=== PATIENT | female | born 1960 | race Caucasian/White ===

== ENCOUNTER 2016-05-23 05:35 | Day surgery (SDC) | payer OTHER ==
[~2016-05-23] VITALS: Ht 160 cm; Wt 51.8 kg
[~2016-05-23 05:35] MED LIST: FentaNYL CITRATE-PF 100 MCG/2 ML VIAL IVP ONE; KETAMINE HCL 50 MG/ML 10 ML VIAL IVP ONE; MIDAZOLAM HCL 2 MG/2 ML VIAL IVP ONE; PROPOFOL 1% 20 ML VIAL IVP ONE
[2016-05-23] MEDS ORDERED: SODIUM CHLORIDE 0.9% 1,000 ML IV ONE ×4 (05:59→15:06)
[2016-05-23] MEDS ORDERED: CeFAZolin 1 GM/DEXTROSE 0 ML IV ONE (06:03)
[2016-05-23] MEDS ORDERED: CeFAZolin 1 GM/DEXTROSE 50 ML IV ONE (06:15)
[2016-05-23] MEDS ORDERED: LORazepam 2 MG/ML VIAL IVP ONE (06:15)
[2016-05-23] MEDS ORDERED: FentaNYL CITRATE-PF 100 MCG/2 ML VIAL ONE (07:13)
[2016-05-23] MEDS ORDERED: MIDAZOLAM HCL 2 MG/2 ML VIAL ONE (07:13)
[2016-05-23] MEDS ORDERED: LIDOCAINE HCL/PF 1% 30 ML VIAL ONE ×2 (07:14→18:11)
[2016-05-23] MEDS ORDERED: 0.9% SODIUM CHLORIDE 10 ML SYRINGE IVP ONE (07:18)
[2016-05-23] MEDS ORDERED: VANCOMYCIN HCL 1 GM/VIAL ONE (07:36)
[2016-05-23] MEDS ORDERED: VANCOMYCIN HCL 1 GM/D5% WATER 200 ML IV ONE (07:45)
[2016-05-23] MEDS ORDERED: PROPOFOL 1000 MG/ISO-OSM 100 ML IV ONE (07:47)
[2016-05-23 08:29] VITALS: BP 118/84
[2016-05-23] MEDS ORDERED: IODIXANOL 320 MG/ML 100 ML VIAL ONE (08:29)
[2016-05-23] MEDS ORDERED: HEPARIN SODIUM 1000 UNITS/NS 500 ML ONE ×2 (08:30→17:56)
[2016-05-23] MEDS ORDERED: LIDOCAINE 1% 30 ML/SOD BICARB 8.4% 4 ML SQ ONE (08:43)
[2016-05-23] MEDS ORDERED: HEPARIN SODIUM 1000 UNITS/NS 500 ML IARTER ONE (08:44)
[2016-05-23] MEDS ORDERED: IODIXANOL 320 MG/ML 100 ML VIAL IARTER ONE (09:12)
[2016-05-23] MEDS ORDERED: SODIUM CHLORIDE 0.9% IRRIG BAG 0 ML IRRIG ONE (10:48)
[2016-05-23 11:25] VITALS: BP 126/78
[2016-05-23 11:28] VITALS: BP 84/61
[2016-05-23] MEDS ORDERED: HYDROmorphone 2 MG/ML SYRINGE IVP PRN (11:30)
[2016-05-23] MEDS ORDERED: FentaNYL CITRATE-PF 100 MCG/2 ML VIAL IVP PRN (11:30)
[2016-05-23] MEDS ORDERED: MEPERIDINE-PF 25 MG/ML SYRINGE IVP PRN (11:30)
[2016-05-23 11:40] VITALS: BP 126/85
[2016-05-23 11:51] VITALS: BP 131/91
[2016-05-23] MEDS ORDERED: RINGERS SOLUTION,LACTATED 500 ML IV ONE ×2 (12:25→13:56)
[2016-05-23] MEDS ORDERED: HYDROmorphone 2 MG/ML SYRINGE ONE ×2 (12:52→17:28)
[2016-05-23] MEDS: HYDROmorphone 2 MG/ML SYRINGE IVP PRN ×2 (12:55→17:44)
[2016-05-23] MEDS ORDERED: PROMETHAZINE HCL 25 MG TABLET PO ONE (13:00)
[2016-05-23] MEDS ORDERED: HYDROmorphone HCL 2 MG TABLET PO ONE (13:00)
[2016-05-23] MEDS ORDERED: HYDROmorphone HCL 2 MG TABLET ONE (14:18)
[2016-05-23] MEDS ORDERED: PROMETHAZINE HCL 25 MG TABLET ONE (14:19)
[2016-05-23] MEDS ORDERED: ONDANSETRON HCL 4 MG/2 ML VIAL IVP ONE (17:45)
[2016-05-23] MEDS ORDERED: OXYGEN THERAPY IH SCH (20:00)
== END 2016-05-23 19:00 | disposition home or self-care (01) ==
LOC: SDS 05:35
PROVIDERS: ATTEND Radiology Diagnostic Radiology
DX: C78.7 Secondary malignant neoplasm of liver and intrahepatic bile duct (principal); C50.912 Malignant neoplasm of unspecified site of left female breast; C50.911 Malignant neoplasm of unspecified site of right female breast; J91.0 Malignant pleural effusion; D64.9 Anemia, unspecified; F32.9 Major depressive disorder, single episode, unspecified; D69.6 Thrombocytopenia, unspecified; Z88.0 Allergy status to penicillin; Z90.721 Acquired absence of ovaries, unilateral; Z96.89 Presence of other specified functional implants
CPT/HCPCS: 19105; 32550; 36245; 36247; 36415; 37243; 71010; 75726; 75774; 75989; 86850; 86900; 86901; 86920; C1729; C1760; C1887 ×2; C1892 ×2; C2618; J1170; J1644; J2250; J2405; J2704 ×2; J3010; J3370 ×2; J3490 ×2; J7030; J7120; P9016; P9035; Q9967; 36561; 47383; 76937; 76942; J0690